=== PATIENT | female | born 1945 | race Caucasian/White ===

== ENCOUNTER 2021-02-12 10:58 | Inpatient (IN) ==
[2021-02-12 12:14] LABS: Basophils # (auto) 0.01 K/uL (0-0.2); Basophils % (auto) 0.3 %; Hemoglobin 13.2 g/dL (12.0-16.0); Immature Granulocytes # (auto) 0.02 K/uL (0.00-0.02); Immature Granulocytes % (auto) 0.6 %; Lymphocytes # (auto) 1.31 K/uL (1.2-3.4); Lymphocytes % (auto) 38.9 %; Mean Corpuscular Volume 84.9 fL (80-100); Mean Platelet Volume 11.9 fL (7.4-10.4); Monocytes # (auto) 0.41 K/uL (0.11-0.59); Monocytes % (auto) 12.2 %; Neutrophils # (auto) 1.62 K/uL (1.4-6.5); Platelet Count 136 K/uL (130-400); RDW Coefficient of Variation 13.5 % (11.5-14.5); Red Blood Count 4.71 M/uL (4.2-5.4); White Blood Count 3.37 K/uL (4.8-10.8)
[2021-02-12 12:44] LABS: Alanine Aminotransferase 38 U/L (12-78); Albumin Globulin Ratio 0.8 (0.9-2); Albumin Level 3.3 gm/dl (3.4-5.0); Alkaline Phosphatase 61 U/L (45-117); Aspartate Aminotransferase 28 U/L (15-37); BUN Creatinine Ratio 17.6 (10-20); Bilirubin,Total 0.6 mg/dl (0.2-1); Blood Urea Nitrogen 16 mg/dl (7-18); Calcium 8.7 mg/dl (8.5-10.1); Carbon Dioxide 22 mmol/L (21-32); Chloride 99 mmol/L (98-107); Creatinine Clr Calc Pharmacy 46.1 ml/min; Est GFR (African American) 68.7 ml/min; Est GFR (Non-African American) 59.3 ml/min; Glucose 302 mg/dl (70-99); Magnesium 1.3 mg/dl (1.8-2.4); Potassium 4.1 mmol/L (3.5-5.1); Sodium 130 mmol/L (136-145); Total Protein 7.3 gm/dl (6.4-8.2); Troponin I < 0.015 ng/ml (0-0.045)
[2021-02-12] MEDS ORDERED: SODIUM CHLORIDE 0.9% 1000ML 1,000 ML IV ONE (13:12)
--- NOTE | 2021-02-12 13:27 | Emergency Department Note ---
Impression & Plan COVID-19, Gastroenteritis due to COVID-19 virus, Dehydration, Hypomagnesemia, Hyperglycemia ED Provider Note NAME: AIME MCGOWAN AGE: 76 SEX: F ARRIVES VIA: Walk-In INFORMANT: Patient, ED PROVIDER(S): Mich Resendez MD CHIEF COMPLAINT: Weakness, diarrhea. PLAN: Disposition: Admit MEDICAL DECISION MAKING: The patient is a pleasant 76-year-old woman with a past medical history of NIDDM 2, CAD, hypertension, hyperlipidemia who presents to emergency department for evaluation of generalized weakness in the setting of feeling body aches and diarrhea with several episodes a day of liquid brown stool that began on Tuesday. She denies cough, congestion, chest pain, shortness of breath, nausea or vomiting. She reports she is attempting to hydrate but feels is not being effective with this. She is not vaccinated for COVID-19. Denies any known COVID-19 exposures or exposures to any individuals flulike symptoms. She denies any chest pain, abdominal pain. She reports she prefer not to be admitted if possible. On arrival patient fatigued appearing but no distress, afebrile with stable vital signs. She appears clinically dry. Her exam is otherwise unremarkable. WBC 3.3K nonspecific, H/H and platelets within normal limits. Chemistry without metabolic acidosis. However glucose is 302. Sodium 130 which corrects to 135 g iven hyperglycemia. Magnesium 1.3 with repletion initiated. Troponin negative/undetectable. LFTs are unremarkable. The patient's COVID-19 PCR was positive. Influenza PCR was negative. Upon reevaluation the patient did report some improvement after IV fluid hydration and magnesium repletion. However at this time she did agree with plan for admission given her symptoms, dehydration, hypomagnesemia in the setting of her COVID-19 infection. Case was discussed with Dr. Stone, [facility] hospitalist, who will evaluate the patient for admission. Triage Nursing notes reviewed and agree them. Prior medical records reviewed Vital Signs: reviewed and remarkable for no significant abnormalities Differential diagnosis: Infection, dehydration, metabolic abnormality, hypo/hyperglycemia, electrolyte disturbance, anemia, hypoxia, cardiac sources, intracerebral event, toxicologic, neurologic, as well as other pathologies. ER treatment provided: See below. Diagnostics interpreted by me: ECG: Normal sinus rhythm with sinus arrhythmia, 67 bpm, left bundle branch block, no ectopy, no sgarbossa criteria. Similar to September 05, 2020. Cardiac Monitoring: An order for continuous cardiac monitoring was placed and demonstrated sinus rhythm, 67 bpm, no ectopy. Laboratory studies: See below Imaging studies: See below Consultation(s): Case was discussed with Dr. Stone, [facility] hospitalist, who will evaluate the patient for admission. HPI: The patient is a pleasant 76-year-old woman with a past medical history of NIDDM 2, CAD, hypertension, hyperlipidemia who presents to emergency department for evaluation of generalized weakness in the setting of feeling body aches and diarrhea with several episodes a day of liquid brown stool that began on Tuesday. She denies cough, congestion, chest pain, shortness of breath, nausea or vomiting. She reports she is attempting to hydrate but feels is not being effective with this. She is not vaccinated for COVID-19. Denies any known COVID-19 exposures or exposures to any individuals flulike symptoms. She denies any chest pain, abdominal pain. She reports she prefer not to be admitted if possible. ROS: See above HPI for pertinent positives & negatives. A total of 10 systems reviewed and were otherwise negative. PAST MEDICAL HISTORY:See Below PAST SURGICAL HISTORY:See Below FAMILY HISTORY:See Below SOCIAL HISTORY:See Below HOME MEDICATIONS:See Below ALLERGIES:See Below VITALS:See Below PHYSICAL EXAMINATION: GENERAL: Awake, alert, fatigued-appearing, in no distress HENT: Normocephalic, atraumatic. Oropharynx with dry mucous membranes and otherwise unremarkable. EYES: Normal conjunctiva. Sclera non-icteric. NECK: Supple. No nuchal rigidity. FROM. No JVD. RESPIRATORY: Clear to auscultation. CARDIAC: Regular rate, normal rhythm. Extremities warm and well perfused. Pulses equal. ABDOMEN: Soft, non-distended. No tenderness to palpation. No rebound or guarding. No masses. RECTAL: Deferred. MUSCULOSKELETAL: Chest examination reveals no tenderness. The back is symmetrical on inspection without obvious abnormality. There is no CVA tenderness to palpation. No joint edema. LOWER EXTREMITIES: Calves are equal size bilaterally and non-tender. No edema. No discoloration. NEURO: Normal sensorium. No sensory or motor deficits noted. SKIN: No rash or jaundice noted. 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 Required: No Beliefs That Will Affect Care: None Current Living Situation: Family Feels Safe at Home: Yes Allergies Allergies Allergy/AdvReac Type Severity Reaction Status Date / Time tramadol AdvReac Intermediate Nausea Verified 02/12/21 14:43 Home Meds Home Medications Medication Instructions Recorded Confirmed alendronate 70 mg tablet 70 mg PO MO 02/12/21 02/12/21 amlodipine 5 mg tablet 5 mg PO QAM 02/12/21 02/12/21 aspirin 81 mg tablet,delayed 81 mg PO DAILY 02/12/21 02/12/21 release citalopram 20 mg tablet 20 mg PO DAILY 02/12/21 02/12/21 ezetimibe 10 mg tablet 10 mg PO DAILY 02/12/21 02/12/21 levothyroxine 25 mcg tablet 25 mcg PO DAILY 02/12/21 02/12/21 metformin 1,000 mg tablet 1,000 mg PO BID 02/12/21 02/12/21 multivitamin 1 tab PO DAILY 02/12/21 02/12/21 pantoprazole 40 mg tablet,delayed 40 mg PO DAILY 02/12/21 02/12/21 release potassium chloride 10 mEq 10 meq PO MOWEFR 02/12/21 02/12/21 tablet,extended release(part/cryst) (Klor-Con M) solifenacin 5 mg tablet 5 mg PO DAILY 02/12/21 02/12/21 triamterene 37.5 1 tab PO TID PRN 02/12/21 02/12/21 mg-hydrochlorothiazide 25 mg tablet Results & Data (ED) Vital Signs Vital Signs - 24 hr 02/12/21 11:19 02/12/21 11:23 02/12/21 13:14 Temperature 36.6 C Temperature Source Temporal Artery Scan Pulse Rate 72 63 Pulse Rate [Left Apical] Pulse Rate from SpO2 Sensor 67 Pulse Rhythm [Left Apical] Pulse Strength [Left Apical] Respiratory Rate 20 22 Respiratory Effort / Characteristics Non-Labored Non-Labored Spontaneous Respiratory Depth Normal Respiratory Pattern Regular Blood Pressure 98/61 L Blood Pressure [Right Arm] Blood Pressure Mean 73 Blood Pressure Mean [Right Arm] Blood Pressure Position [Right Arm] Pulse Oximetry 92 95 Oxygen Delivery Method Room Air Room Air Sepsis Recent Fever Within 48 Hours No Sepsis New/Unexplained Change in Mental Status N/A Sepsis Action Taken by Nursing No Action Required 02/12/21 13:30 02/12/21 14:00 02/12/21 14:30 Temperature Temperature Source Pulse Rate 65 70 68 Pulse Rate [Left Apical] 65 Pulse Rate from SpO2 Sensor 71 67 Pulse Rhythm [Left Apical] Regular Pulse Strength [Left Apical] Normal Respiratory Rate 17 25 H 23 Respiratory Effort / Characteristics Non-Labored Spontaneous Respiratory Depth Normal Respiratory Pattern Regular Blood Pressure Blood Pressure [Right Arm] 136/89 Blood Pressure Mean Blood Pressure Mean [Right Arm] 104 Blood Pressure Position [Right Arm] Lying Pulse Oximetry 93 91 91 Oxygen Delivery Method Room Air Sepsis Recent Fever Within 48 Hours Sepsis New/Unexplained Change in Mental Status Sepsis Action Taken by Nursing 02/12/21 14:45 02/12/21 15:00 02/12/21 15:30 Temperature Temperature Source Pulse Rate 68 70 Pulse Rate [Left Apical] 70 Pulse Rate from SpO2 Sensor 69 70 Pulse Rhythm [Left Apical] Regular Pulse Strength [Left Apical] Normal Respiratory Rate 18 23 23 Respiratory Effort / Characteristics Non-Labored Spontaneous Respiratory Depth Normal Respiratory Pattern Regular Blood Pressure 148/71 H Blood Pressure [Right Arm] 154/71 H Blood Pressure Mean 96 Blood Pressure Mean [Right Arm] 98 Blood Pressure Position [Right Arm] Lying Pulse Oximetry 96 92 91 Oxygen Delivery Method Room Air Sepsis Recent Fever Within 48 Hours Sepsis New/Unexplained Change in Mental Status Sepsis Action Taken by Nursing 02/12/21 16:00 02/12/21 16:30 02/12/21 17:00 Temperature Temperature Source Pulse Rate 69 68 69 Pulse Rate [Left Apical] Pulse Rate from SpO2 Sensor 68 72 70 Pulse Rhythm [Left Apical] Pulse Strength [Left Apical] Respiratory Rate 24 21 24 Respiratory Effort / Characteristics Respiratory Depth Respiratory Pattern Blood Pressure 145/80 H Blood Pressure [Right Arm] Blood Pressure Mean 101 Blood Pressure Mean [Right Arm] Blood Pressure Position [Right Arm] Pulse Oximetry 94 95 100 Oxygen Delivery Method Sepsis Recent Fever Within 48 Hours Sepsis New/Unexplained Change in Mental Status Sepsis Action Taken by Nursing 02/12/21 17:30 02/12/21 18:00 02/12/21 18:30 Temperature Temperature Source Pulse Rate 75 70 75 Pulse Rate [Left Apical] Pulse Rate from SpO2 Sensor 74 72 66 Pulse Rhythm [Left Apical] Pulse Strength [Left Apical] Respiratory Rate 20 25 H 24 Respiratory Effort / Characteristics Respiratory Depth Respiratory Pattern Blood Pressure 145/82 H Blood Pressure [Right Arm] Blood Pressure Mean 103 Blood Pressure Mean [Right Arm] Blood Pressure Position [Right Arm] Pulse Oximetry 96 96 93 Oxygen Delivery Method Sepsis Recent Fever Within 48 Hours Sepsis New/Unexplained Change in Mental Status Sepsis Action Taken by Nursing 02/12/21 19:00 Temperature Temperature Source Pulse Rate 77 Pulse Rate [Left Apical] Pulse Rate from SpO2 Sensor 68 Pulse Rhythm [Left Apical] Pulse Strength [Left Apical] Respiratory Rate 19 Respiratory Effort / Characteristics Respiratory Depth Respiratory Pattern Blood Pressure Blood Pressure [Right Arm] Blood Pressure Mean Blood Pressure Mean [Right Arm] Blood Pressure Position [Right Arm] Pulse Oximetry 93 Oxygen Delivery Method Sepsis Recent Fever Within 48 Hours Sepsis New/Unexplained Change in Mental Status Sepsis Action Taken by Nursing Laboratory Data Attestation: I reviewed the patient's lab results. Result diagrams: 02/12/21 11:54 02/12/21 11:54 Lab Results 02/12/21 02/12/21 02/12/21 Range/Units 11:54 11:54 11:54 WBC 3.37 L (4.8-10.8) K/uL RBC 4.71 (4.2-5.4) M/uL Hgb 13.2 (12.0-16.0) g/dL Hct 40.0 (37-47) % MCV 84.9 (80-100) fL MCH 28.0 (25-34) pg MCHC 33.0 (32-36) g/dL RDW Std Deviation 42.0 (36.4-46.3) fL RDW Coeff of Sheryl 13.5 (11.5-14.5) % Plt Count 136 (130-400) K/uL MPV 11.9 H (7.4-10.4) fL Immature Gran % (Auto) 0.6 % Neut % (Auto) 48.0 % Lymph % (Auto) 38.9 % Turner % (Auto) 12.2 % Eos % (Auto) 0.0 % Baso % (Auto) 0.3 % Neut # (Auto) 1.62 (1.4-6.5) K/uL Lymph # (Auto) 1.31 (1.2-3.4) K/uL Turner # (Auto) 0.41 (0.11-0.59) K/uL Eos # (Auto) 0.00 (0-0.5) K/uL Baso # (Auto) 0.01 (0-0.2) K/uL Immature Gran # (Auto) 0.02 (0.00-0.02) K/uL Sodium 130 L (136-145) mmol/L Potassium 4.1 (3.5-5.1) mmol/L Chloride 99 (98-107) mmol/L Carbon Dioxide 22 (21-32) mmol/L Anion Gap 9.0 (3-11) BUN 16 (7-18) mg/dl Creatinine 0.93 (0.6-1.2) mg/dl Est Cr Clr Drug Dosing 46.1 ml/min Est GFR ( Amer) 68.7 ml/min Est GFR (Non-Af Amer) 59.3 ml/min BUN/Creatinine Ratio 17.6 (10-20) Glucose 302 H* (70-99) mg/dl Osmolality (280-300) mOsm/kg Calcium 8.7 (8.5-10.1) mg/dl Phosphorus 3.7 (2.5-4.9) mg/dl Magnesium 1.3 L (1.8-2.4) mg/dl Total Bilirubin 0.6 (0.2-1) mg/dl AST 28 (15-37) U/L ALT 38 (12-78) U/L Alkaline Phosphatase 61 (45-117) U/L Troponin I < 0.015 (0-0.045) ng/ml Total Protein 7.3 (6.4-8.2) gm/dl Albumin 3.3 L (3.4-5.0) gm/dl Globulin 4.0 (2.5-4.0) gm/dl Albumin/Globulin Ratio 0.8 L (0.9-2) Beta-Hydroxybutyric Acd (0.2-2.81) mg/dl Specimen Hemolysis SARS-CoV-2 (PCR) (Negative) Influ A Molecular Assay (Negative) Influ B Molecular Assay (Negative) 02/12/21 02/12/21 02/12/21 Range/Units 13:35 13:35 14:47 WBC (4.8-10.8) K/uL RBC (4.2-5.4) M/uL Hgb (12.0-16.0) g/dL Hct (37-47) % MCV (80-100) fL MCH (25-34) pg MCHC (32-36) g/dL RDW Std Deviation (36.4-46.3) fL RDW Coeff of Sheryl (11.5-14.5) % Plt Count (130-400) K/uL MPV (7.4-10.4) fL Immature Gran % (Auto) % Neut % (Auto) % Lymph % (Auto) % Turner % (Auto) % Eos % (Auto) % Baso % (Auto) % Neut # (Auto) (1.4-6.5) K/uL Lymph # (Auto) (1.2-3.4) K/uL Turner # (Auto) (0.11-0.59) K/uL Eos # (Auto) (0-0.5) K/uL Baso # (Auto) (0-0.2) K/uL Immature Gran # (Auto) (0.00-0.02) K/uL Sodium (136-145) mmol/L Potassium (3.5-5.1) mmol/L Chloride (98-107) mmol/L Carbon Dioxide (21-32) mmol/L Anion Gap (3-11) BUN (7-18) mg/dl Creatinine (0.6-1.2) mg/dl Est Cr Clr Drug Dosing ml/min Est GFR ( Amer) ml/min Est GFR (Non-Af Amer) ml/min BUN/Creatinine Ratio (10-20) Glucose (70-99) mg/dl Osmolality 288 (280-300) mOsm/kg Calcium (8.5-10.1) mg/dl Phosphorus (2.5-4.9) mg/dl Magnesium (1.8-2.4) mg/dl Total Bilirubin (0.2-1) mg/dl AST (15-37) U/L ALT (12-78) U/L Alkaline Phosphatase (45-117) U/L Troponin I (0-0.045) ng/ml Total Protein (6.4-8.2) gm/dl Albumin (3.4-5.0) gm/dl Globulin (2.5-4.0) gm/dl Albumin/Globulin Ratio (0.9-2) Beta-Hydroxybutyric Acd (0.2-2.81) mg/dl Specimen Hemolysis SARS-CoV-2 (PCR) POSITIVE A* (Negative) Influ A Molecular Assay Negative (Negative) Influ B Molecular Assay Negative (Negative) 02/12/21 Range/Units 14:47 WBC (4.8-10.8) K/uL RBC (4.2-5.4) M/uL Hgb (12.0-16.0) g/dL Hct (37-47) % MCV (80-100) fL MCH (25-34) pg MCHC (32-36) g/dL RDW Std Deviation (36.4-46.3) fL RDW Coeff of Sheryl (11.5-14.5) % Plt Count (130-400) K/uL MPV (7.4-10.4) fL Immature Gran % (Auto) % Neut % (Auto) % Lymph % (Auto) % Turner % (Auto) % Eos % (Auto) % Baso % (Auto) % Neut # (Auto) (1.4-6.5) K/uL Lymph # (Auto) (1.2-3.4) K/uL Turner # (Auto) (0.11-0.59) K/uL Eos # (Auto) (0-0.5) K/uL Baso # (Auto) (0-0.2) K/uL Immature Gran # (Auto) (0.00-0.02) K/uL Sodium (136-145) mmol/L Potassium (3.5-5.1) mmol/L Chloride (98-107) mmol/L Carbon Dioxide (21-32) mmol/L Anion Gap (3-11) BUN (7-18) mg/dl Creatinine (0.6-1.2) mg/dl Est Cr Clr Drug Dosing ml/min Est GFR ( Amer) ml/min Est GFR (Non-Af Amer) ml/min BUN/Creatinine Ratio (10-20) Glucose (70-99) mg/dl Osmolality (280-300) mOsm/kg Calcium (8.5-10.1) mg/dl Phosphorus (2.5-4.9) mg/dl Magnesium (1.8-2.4) mg/dl Total Bilirubin (0.2-1) mg/dl AST (15-37) U/L ALT (12-78) U/L Alkaline Phosphatase (45-117) U/L Troponin I (0-0.045) ng/ml Total Protein (6.4-8.2) gm/dl Albumin (3.4-5.0) gm/dl Globulin (2.5-4.0) gm/dl Albumin/Globulin Ratio (0.9-2) Beta-Hydroxybutyric Acd 1.03 (0.2-2.81) mg/dl Specimen Hemolysis SARS-CoV-2 (PCR) (Negative) Influ A Molecular Assay (Negative) Influ B Molecular Assay (Negative) Administered Medications Discontinued Medications Magnesium Sulfate/Dextrose (Magnesium Sulfate / D5w) 1 gm in 100 mls @ 100 mls/hr IV Q1H ENRICO Stop: 02/12/21 15:12 Last Infusion: 02/12/21 15:56 Dose: 0 mls/hr Documented by: [id number] Admin: 02/12/21 14:46 Dose: 100 mls/hr Documented by: [id number] Infusion: 02/12/21 14:45 Dose: 0 mls/hr Documented by: [id number] Admin: 02/12/21 13:33 Dose: 100 mls/hr Documented by: [id number] Sodium Chloride (Nss 1000ml) 1,000 mls @ 999 mls/hr IV .Q1H1M ONE Stop: 02/12/21 14:12 Last Infusion: 02/12/21 14:45 Dose: 0 mls/hr Documented by: [id number] Admin: 02/12/21 13:33 Dose: 999 mls/hr Documented by: [id number] Imaging Data Radiologist's Impression: Chest X-Ray 02/12/21 11:25 XR chest 1V portable CLINICAL HISTORY: Shortness of breath. COMPARISON STUDY: No previous studies for comparison. FINDINGS: Lung volumes are normal. Minimal bibasilar opacities favor atelectasis. There is no pneumothorax or pleural effusion. Cardiac size is normal. Mediastinal contours are normal. There is no evidence for pulmonary edema. IMPRESSION: No acute cardiopulmonary findings. ACT 112: Negative or not required by law. Electronically signed by: Jesus Kramer M.D. 02/12/2021 2:00 PM Discharge Plan Visit Data Chief Complaint: Respiratory Problems Stated Complaint: TIRED/WEAKNESS/SYMPTOMS OF COLD ED Provider: Mich Resendez Discharge Problem: COVID-19, Gastroenteritis due to COVID-19 virus, Dehydration, Hypomagnesemia, Hyperglycemia Discharge Instructions Krames/Other Patient Handouts: 2019-nCoV, Coughing Techniques, Deep Coughing, ED Diabetes with High Blood Sugar, ED Gastroenteritis, Viral (Adult) Activity Restrictions/Additional Instructions: Please follow up with your primary care physician via phone within one week for re-evaluation. Your symptoms were found to be due to a COVID-19 infection with associated gastroenteritis and dehydration. This also contributed to low magnesium. Acetaminophen (650mg every 4 hours) for pain and fevers as needed. For respiratory symptoms: -Use your albuterol 2 puffs every 4 hours as needed for cough and wheezing. -Use zudf-bgo-lxrcanv Mucinex (guaifenesin) and nasal saline to help thin and clear mucus. -Use sgql-kvv-eruvqvx antihistamine such as Claritin (Loratadine) 10 mg daily for additional congestion relief. -For cough and sore throat, Salt-water gargle: Stir half a teaspoon of salt into a cup of warm water until it dissolves. Allow the solution to cool slightly before using it to gargle. Let the mixture sit at the back of the throat for a few moments before spitting it out. Gargle with salt water several times each day until the cough improves. -Deep cough/breathing exercises. For GI symptoms: Kuog-ufd-gdpklzw famotidine (Pepcid) as needed for GI upset and acid reduction. Tsfh-waj-ensdlnd Mylanta as needed for additional acid relief as needed. Zofran as needed for nausea. Drink plenty of fluids to ensure hydration with electrolyte enriched beverages such as Gatorade or Pedialyte. Remain in home isolation until: *At least 10 days since symptoms first appeared and *At least 24 hours with no fever without fever-reducing medication and *Symptoms have improved Please note any individuals with you were in contact with should remain in home quarantine for at least 14 days. Return to the emergency department for worsening symptoms as described in the accompanying instructions. Forms Stand Alone Forms: [facility], Virtual Emergency Department, Important Visit Information Prescriptions Prescriptions: No Action multivitamin Tablet 1 tab PO DAILY RF: 0 alendronate 70 mg tablet 70 mg PO MO RF: 0 amlodipine 5 mg tablet 5 mg PO QAM RF: 0 aspirin 81 mg Tablet,Delayed Release (Dr/Ec) 81 mg PO DAILY RF: 0 levothyroxine 25 mcg tablet 25 mcg PO DAILY RF: 0 citalopram 20 mg tablet 20 mg PO DAILY RF: 0 pantoprazole 40 mg tablet,delayed release (DR/EC) 40 mg PO DAILY RF: 0 metformin 1,000 mg tablet 1,000 mg PO BID RF: 0 triamterene-hydrochlorothiazid 37.5-25 mg tablet 1 tab PO TID PRN (Reason: Water Retention) RF: 0 ezetimibe 10 mg tablet 10 mg PO DAILY RF: 0 potassium chloride [Klor-Con M10] 10 mEq tablet,ER particles/crystals 10 meq PO MOWEFR RF: 0 solifenacin 5 mg tablet 5 mg PO DAILY RF: 0 Referrals Referrals: Fei Liriano MD [Primary Care Provider] -
[2021-02-12] MEDS: MAGNESIUM SULFATE / D5W 1 GM/100 ML BAG IV SCH ×2 (13:33→14:46)
--- NOTE | 2021-02-12 14:02 | XRay Report ---
XR chest 1V portable CLINICAL HISTORY: Shortness of breath. COMPARISON STUDY: No previous studies for comparison. FINDINGS: Lung volumes are normal. Minimal bibasilar opacities favor atelectasis. There is no pneumot horax or pleural effusion. Cardiac size is normal. Mediastinal contours are normal. There is no evide nce for pulmonary edema. IMPRESSION: No acute cardiopulmonary findings. ACT 112: Negative or not required by law. Electronically signed by: Jesus Kramer M.D. 02/12/2021 2:00 PM
[2021-02-12 14:08] LABS: Influenza A virus by PCR Negative (Negative); Influenza B virus by PCR Negative (Negative)
[2021-02-12] MEDS ORDERED: REMDESIVIR 200 MG in SODIUM CHLORIDE 0.9% 210 ML IV STA (23:02)
--- NOTE | 2021-02-13 01:20 | History and Physical Report ---
DATE OF ADMISSION: 02/12/2021. CHIEF COMPLAINT: Shortness of breath. HISTORY OF PRESENT ILLNESS: This is a 76-year-old female with past medical history significant for type 2 diabetes, hyperlipidemia, allergic rhinitis, hypertension, left bundle-branch block, GERD, urge incontinence, osteoporosis, history of herpes simplex infection, history of periodic limb movement disorder, major depression, who lives with her , comes because of shortness of breath. The patient is having symptoms of COVID since last Tuesday with some cough, body aches, poor appetite, fevers. Denies any headache. Denies any chest pain. Has some sore throat, no runny nose. Has no abdominal pain, but has diarrhea, had four episodes of bowel movements today. Normal bladder movements. No swelling in the legs. In the ER, she was desaturated to 88% on room air. The patient is not COVID vaccinated. ALLERGIES: TRAMADOL. PAST MEDICAL HISTORY: As mentioned above. PAST SURGICAL HISTORY: Breast lesion excision, cardiac catheterization, colonoscopy, partial hysterectomy, removal of tonsils, cataracts, cholecystectomy. MEDICATIONS: The patient is on alendronate 70 mg p.o. Tuesday, amlodipine 5 mg p.o. a.m., aspirin 81 mg p.o. daily, atorvastatin 80 mg p.o. daily, citalopram 20 mg p.o. daily, ezetimibe 10 mg p.o. daily, glimepiride 4 mg p.o. daily, hydralazine 50 mg p.o. b.i.d., levothyroxine 25 mcg p.o. daily, lisinopril 20 mg p.o. daily, metformin 1000 mg p.o. b.i.d., multivitamin 1 tablet p.o. daily, Protonix 40 mg p.o. daily, Klor-Con 10 mg p.o. Tuesday, Tuesday and Fridays, solifenacin 5 mg p.o. daily, triamterene-hydrocortisone 1 tablet p.o. t.i.d. p.r.n. FAMILY HISTORY: Significant for niece has breast cancer, brother has lung cancer, son has brain tumor. Mother has heart disorder. Daughter has hypertension. Sister has hypertension. Father has stroke. Son has stroke. SOCIAL HISTORY: Quit smoking in 2003, smoked 1 pack a day for 25 years. No alcohol, no drug use. REVIEW OF SYSTEMS: As per HPI. Rest of review of systems is negative. PHYSICAL EXAMINATION: GENERAL: The patient is moderate build, currently not in acute distress. VITAL SIGNS: Temperature 36.6, pulse 67, respiratory rate 27, blood pressure 154/70, oxygen was 88% on room air. HEENT: Pupils equal, round and reactive to light. Oral mucosa moist. NECK: No JVD, no neck masses. CARDIOVASCULAR: S1 and S2 heard. Regular rate and rhythm. No murmur, no gallop. RESPIRATORY SYSTEM: Normal AP diameter. No accessory muscle use. No wheezing, no crackles. ABDOMEN: Soft, bowel sounds present, nontender, no distention. CENTRAL NERVOUS SYSTEM: Cranial nerves II-XII grossly intact, nonfocal. EXTREMITIES: No edema, no erythema. LABORATORY DATA: WBC 3.3, hemoglobin 13.2, hematocrit 40, platelets 136. Sodium 130, potassium 4.1, chloride 99, bicarbonate 22, BUN 16, creatinine 0.9, serum glucose 302. Calcium was 8.7, magnesium 1.3, phosphorus 3.7, total bilirubin 0.6, AST 28, ALT 38, alkaline phosphatase 61. Troponin I less than 0.015, SARS-CoV-2 PCR positive. Influenza A and B negative. IMAGING DATA: Chest x-ray okay. EKG: Normal sinus rhythm with sinus arrhythmia at a rate of 67, left bundle- branch block. ASSESSMENT AND PLAN: This is a 76-year-old female who presents with COVID-19. 1. COVID-19: Was hypoxic on room air, not vaccinated, was given Decadron and remdesivir. Follow the remdesivir labs. Closely monitor in [employer] tele. 2. Hypomagnesemia, possibly from the ongoing diarrhea. We will replace. 3. Diabetes, sugars are running high. We will monitor sugars while patient is getting Decadron. Placed on insulin sliding scale Lantus. Adjust insulin regimen. 4. Hypertension. Continue home medication lisinopril, hydralazine, amlodipine. We will monitor blood pressure. 5. Gastroesophageal reflux disease: Continue Protonix. Continue solifenacin. 6. Hyperlipidemia: On statin. 7. Depression: Citalopram. 8. Deep venous thrombosis prophylaxis: Lovenox. DISPOSITION: Closely monitor in the [employer] tele. Level 1 full code. Expect to discharge home and follow with family doctor. Job ID: [id number] [facility] CENT[facility]ateryna
[2021-02-13] MEDS ORDERED: TRIAMTERENE/HCTZ 37.5/25MG TAB PO PRN (01:27)
[2021-02-13] MEDS ORDERED: SODIUM CHLORIDE 0.9% 1000ML 1,000 ML IV SCH (01:27)
[2021-02-13] MEDS ORDERED: NITROGLYCERIN SL 0.4 MG/TAB TAB SL PRN (01:27)
[2021-02-13] MEDS ORDERED: LEVALBUTEROL HCL 1.25 MG/3 ML NEB NEB PRN (01:27)
[2021-02-13] MEDS ORDERED: ACETAMINOPHEN 325 MG TAB PO PRN (01:27)
[2021-02-13] MEDS ORDERED: guaiFENesin/CODEINE 100MG/10MG 5ML UDC PO PRN (01:27)
[2021-02-13] MEDS: SODIUM CHLORIDE 0.9% 10ML FLUSH IV SCH (03:15)
[2021-02-13] MEDS: INSULIN ASPART 100 UNITS/ML 3 ML PEN SC SCH ×5 (03:38→20:27)
[2021-02-13] MEDS: LEVOTHYROXINE SODIUM 25 MCG TABLET PO SCH (06:55)
[2021-02-13] MEDS: ENOXAPARIN INJ 40 MG/0.4 ML SYR SQ SCH (07:21)
[2021-02-13] MEDS: dexAMETHasone 6 MG in SYRINGE 0 ML IV SCH (07:22)
[2021-02-13] MEDS: ASPIRIN 81 MG ECTAB PO SCH (07:22)
[2021-02-13] MEDS: FLUTICASONE FUROATE 100MCG 14 PUFFS/INHALER INH SCH (07:22)
[2021-02-13] MEDS: lisinopril 20 MG TAB PO SCH (07:22)
[2021-02-13] MEDS: ATORVASTATIN 40 MG TAB PO SCH (07:22)
[2021-02-13] MEDS: EZETIMIBE 10 MG TABLET PO SCH (07:22)
[2021-02-13] MEDS: CITALOPRAM 20 MG TAB PO SCH (07:22)
[2021-02-13] MEDS: hydrALAZINE TAB 50 MG TAB PO SCH ×2 (07:22→21:16)
[2021-02-13] MEDS: amLODIPine BESYLATE 5 MG TAB PO SCH (07:22)
[2021-02-13] MEDS: PANTOprazole 40 MG TAB PO SCH (07:23)
[2021-02-13] MEDS: MULTIVITAMIN TAB PO SCH (07:23)
[2021-02-13 07:36] LABS: Hematocrit (blood only) 38.3 % (37-47); Hemoglobin 12.6 g/dL (12.0-16.0); Mean Corpuscular Hgb Conc 32.9 g/dL (32-36); Mean Corpuscular Volume 85.1 fL (80-100); Mean Platelet Volume 12.2 fL (7.4-10.4); Platelet Count 107 K/uL (130-400); RDW Coefficient of Variation 13.8 % (11.5-14.5); White Blood Count 3.36 K/uL (4.8-10.8)
--- NOTE | 2021-02-13 07:37 | Electrocardiogram Report ---
Test Reason : Blood Pressure : / mmHG Vent. Rate : 067 BPM Atrial Rate : 067 BPM P-R Int : 174 ms QRS Dur : 142 ms QT Int : 452 ms P-R-T Axes : 000 006 110 degrees QTc Int : 477 ms Normal sinus rhythm with sinus arrhythmia Left bundle branch block Abnormal ECG When compared with ECG of 05-SEP-2020 19:59, Aberrant conduction is no longer Present QRS axis Shifted right Confirmed by Preston Swanson ([id number]) on 02/13/2021 7:36:48 AM Referred By: ED Confirmed By:Mian Swanson
[2021-02-13 08:02] LABS: Lymphocytes # (auto) 1.43 K/uL (1.2-3.4); Lymphocytes % (auto) 42.6 %; Monocytes # (auto) 0.38 K/uL (0.11-0.59); Monocytes % (auto) 11.3 %; Neutrophils # (auto) 1.55 K/uL (1.4-6.5); Neutrophils % (auto) 46.1 %
[2021-02-13 08:12] LABS: Alanine Aminotransferase 33 U/L (12-78); Albumin Level 2.8 gm/dl (3.4-5.0); Alkaline Phosphatase 55 U/L (45-117); Aspartate Aminotransferase 21 U/L (15-37); BUN Creatinine Ratio 15.7 (10-20); Bilirubin Direct < 0.1 mg/dl (0-0.2); Bilirubin,Total 0.4 mg/dl (0.2-1); Blood Urea Nitrogen 11 mg/dl (7-18); C Reactive Protein 0.83 mg/dl (0-0.29); Calcium 7.5 mg/dl (8.5-10.1); Carbon Dioxide 23 mmol/L (21-32); Chloride 105 mmol/L (98-107); Creatinine Clr Calc Pharmacy 63.1 ml/min; Est GFR (African American) 97.8 ml/min; Est GFR (Non-African American) 84.4 ml/min; Glucose 239 mg/dl (70-99); Magnesium 1.5 mg/dl (1.8-2.4); Potassium 3.6 mmol/L (3.5-5.1); Sodium 138 mmol/L (136-145); Total Protein 6.3 gm/dl (6.4-8.2)
[2021-02-13 08:30] LABS: Estimated Average Glucose 223 mg/dl; Hemoglobin A1C 9.4 % (4.5-5.6)
[2021-02-13] MEDS ORDERED: INSULIN GLARGINE SOLOSTAR 100 UNITS/ML 3 ML PEN SC SCH ×2 (09:00→21:00)
[2021-02-13] MEDS ORDERED: POTASSIUM CHLORIDE 10 MEQ TABCR PO SCH (09:00)
[2021-02-13] MEDS ORDERED: DEXTROSE 5% 500 ML IV SCH (10:15)
[2021-02-13] MEDS: MAGNESIUM SULFATE / D5W 1 GM/100 ML BAG IV SCH ×2 (10:40→13:14)
[2021-02-13 14:48] LABS: BUN Creatinine Ratio 18.8 (10-20); Calcium 7.7 mg/dl (8.5-10.1); Est GFR (Non-African American) 73.3 ml/min
[2021-02-13 15:03] LABS: Beta-Hydroxybutyrate 1.08 mg/dl (0.2-2.81); Potassium 4.2 mmol/L (3.5-5.1)
[2021-02-13] MEDS ORDERED: INSULIN HUMAN REGULAR PER UNIT 10 UNITS in SYRINGE 9.9 ML IV STA (15:45)
--- NOTE | 2021-02-13 18:03 | Hospitalist Progress Note ---
Date of Service February 13, 2021 Assessment & Plan (1) COVID-19: Plan: GI symptoms and weakness have resolved just today. She is feeling much better. Not requiring oxygen now but is 92% on room air. Would recommend 2 step test prior to discharge. Some crackles on lung auscultation indicate a possible developing pneumonia. Would watch her one more day and then consider DC to home if still not requiring oxygen. As a diabetic patient, she is at higher risk for complications of covid. She is also unvaccinated. (2) Gastroenteritis due to COVID-19 virus: Plan: Diarrhea has resolved per her report and she is eating well and ambulating to the bathroom now without issue. (3) Type 2 diabetes mellitus: Plan: Hyperglycemia partly from steroids and partly from dextrose given today. She also did not receive carbohydrate coverage for her lunch today. Gave insulin 10 units and cont with basal bolus insulin at tight restriction. (4) Hypomagnesemia: Plan: repletion given today. Repeat lab in am. (5) Dehydration: Plan: Hyponatremia likely related to recent covid symptoms and GI losses. Improved and is now within range. Noted that overnight Na was 130 and went to 138 within about 6 hours, so dextrose was given bringing Na to 134 on recheck this afternoon. Patient should eat and drink to thirst and would repeat BMP in am. (6) Hypertension: Plan: Controlled and at goal. Cont lisinopril, amlodipine and hydralazine per home regimen. Hold maxzide PRN, which is also an odd way to use that medication. Wo uld recommend readdressing that with PCP on follow-up as this should either be scheduled or not and typically only once daily. (7) Hypothyroidism: Plan: Chronic, stable. Cont Synthroid per home regimen. (8) DVT prophylaxis: Plan: Lovenox Full Code Dispo-likely to home in am. Recommend 2 step prior to discharge. Chiara Palomino DO [facility] Hospitalist Admission and Anticipated Discharge Date Admission Date: February 12, 2021 Subjective 76 yo diabetic female with ongoing diarrhea and weakness at home 2/2 covid. No evidence of pneumonia on CXR and she is not requiring oxygen supplementation. Reports occasional cough. Diarrhea has since resolved. She is now up and ambulating to the bathroom without issues and feels her weakness has improved. Doing well overall. Review of Systems Review of Systems: All systems were reviewed and negative except as indicated in subjective above. Physical Exam Physical Exam: CONSTITUTIONAL: WNWD, vitals as above, generally well- appearing, NAD EYES: normal conjunctivae, no scleral icterus ENT: external ear and nose normal, MMM NECK: trachea midline RESPIRATORY: crackles with diminished breath sounds in the RLL, no rales or wheezes, normal respiratory effort CARDIOVASCULAR: regular rate and rhythm, S1 and 2 heard without murmurs, gallops or rubs, no JVD, no peripheral edema GASTROINTESTINAL: soft, nontender, ND, no guarding MUSCULOSKELETAL: strength 5/5 throughout, head is normocephalic and atraumatic SKIN: warm and dry NEUROLOGIC: CN 2-12 grossly intact, no sensory deficit, normal cognition, normal speech, no tremor. No gross focal deficits. PSYCHIATRIC: alert cooperative and oriented to person, place and time. Euthymic mood, makes good eye contact, language grossly intact, recent and remote memory grossly intact. Results & Data Results & Data ([facility]) Vital Signs (Past 12 Hours) Vital Signs Temp Pulse Pulse Resp BP BP Pulse Ox 02/13/21 12:57 75 20 142/65 H 92 02/13/21 10:51 37.3 C 71 22 129/58 L 96 02/13/21 10:41 37.3 C 70 22 129/58 L 95 02/13/21 07:29 37.3 C 64 19 158/76 H 92 Laboratory Results Short CBC 02/13/21 Range/Units 06:49 WBC 3.36 L (4.8-10.8) K/uL Hgb 12.6 (12.0-16.0) g/dL Hct 38.3 (37-47) % Plt Count 107 L (130-400) K/uL BMP 02/13/21 02/13/21 06:49 14:11 Sodium 138 D 134 L Potassium 3.6 4.2 D Chloride 105 103 Carbon Dioxide 23 21 BUN 11 15 Creatinine 0.68 0.78 Glucose 239 H 407 H* Calcium 7.5 L 7.7 L Liver Function 02/13/21 Range/Units 06:49 Total Bilirubin 0.4 (0.2-1) mg/dl Direct Bilirubin < 0.1 (0-0.2) mg/dl AST 21 (15-37) U/L ALT 33 (12-78) U/L Alkaline Phosphatase 55 (45-117) U/L Albumin 2.8 L (3.4-5.0) gm/dl Medications Administered Current Inpatient Medications Acetaminophen (Acetaminophen 325 Mg Tab) 650 mg PO Q4H PRN PRN Reason: Pain or Fever Stop: 03/15/21 01:26 Alendronate Sodium (Alendronate Sodium 70 Mg Tab) 70 mg PO Mo@0630 [place] Stop: 03/18/21 06:29 Amlodipine Besylate (Amlodipine Besylate 5 Mg Tab) 5 mg PO QAM [place] Stop: 03/15/21 08:59 Last Admin: 02/13/21 07:22 Dose: 5 mg Documented by: Aspirin (Aspirin 81 Mg Ectab) 81 mg PO DAILY [place] Stop: 03/15/21 08:59 Last Admin: 02/13/21 07:22 Dose: 81 mg Documented by: Atorvastatin Calcium (Atorvastatin 40 Mg Tab) 80 mg PO DAILY [place] Stop: 03/15/21 08:59 Last Admin: 02/13/21 07:22 Dose: 80 mg Documented by: Citalopram Hydrobromide (Citalopram 20 Mg Tab) 20 mg PO DAILY [place] Stop: 03/15/21 08:59 Last Admin: 02/13/21 07:22 Dose: 20 mg Documented by: Ezetimibe (Ezetimibe 10 Mg Tablet) 10 mg PO DAILY [place] Stop: 03/15/21 08:59 Last Admin: 02/13/21 07:22 Dose: 10 mg Documented by: Enoxaparin Sodium (Enoxaparin Inj 40 Mg/0.4 Ml Syr) 40 mg SQ Q24H [place] Stop: 03/15/21 08:59 Last Admin: 02/13/21 07:21 Dose: 40 mg Documented by: Fluticasone Furoate (Fluticasone Furoate 100mcg 14 Puffs/Inhaler) 1 puffs INH DAILY [place] Stop: 03/15/21 08:59 Last Admin: 02/13/21 07:22 Dose: 1 puffs Documented by: Guaifenesin/Codeine Phosphate (Guaifenesin/Codeine 100mg/10mg 5ml Udc) 5 ml PO Q6H PRN PRN Reason: Cough Stop: 03/15/21 01:26 Hydralazine HCl (Hydralazine Tab 50 Mg Tab) 50 mg PO BID [place] Stop: 03/15/21 08:59 Last Admin: 02/13/21 07:22 Dose: 50 mg Documented by: Remdesivir 100 mg/ Sodium (Chloride) 250 mls @ 250 mls/hr IV Q24H [facility]; Protocol Stop: 02/16/21 20:59 Dexamethasone 6 mg/ Syringe 1.5 mls @ 1 mls/min IV DAILY [place] Stop: 02/23/21 08:59 Last Admin: 02/13/21 07:22 Dose: 1 mls/min Documented by: Insulin Aspart (Insulin Aspart 100 Units/Ml 3 Ml Pen) 0 units SC ACHS [place] Stop: 03/15/21 02:59 Last Admin: 02/13/21 12:14 Dose: 8 units Documented by: Insulin Glargine (Insulin Glargine Solostar 100 Units/Ml 3 Ml Pen) 15 units SC BID [facility] Stop: 03/15/21 20:59 Levalbuterol HCl (Levalbuterol Hcl 1.25 Mg/3 Ml Neb) 1.25 mg NEB Q4H PRN PRN Reason: Shortness Of Breath Or Wheezing Stop: 03/15/21 01:26 Levothyroxine Sodium (Levothyroxine Sodium 25 Mcg Tablet) 25 mcg PO DAILYBB [facility] Stop: 03/15/21 06:29 Last Admin: 02/13/21 06:55 Dose: 25 mcg Documented by: Lisinopril (Lisinopril 20 Mg Tab) 20 mg PO DAILY [place] Stop: 03/15/21 08:59 Last Admin: 02/13/21 07:22 Dose: 20 mg Documented by: Miscellaneous (Solifenacin: Order Awaiting Action) 1 ea N/A QS [facility] Stop: 03/15/21 07:59 Last Admin: 02/13/21 07:22 Dose: Not Given Documented by: Multivitamins (Multivitamin Tab) 1 tab PO DAILY [facility] Stop: 03/15/21 08:59 Last Admin: 02/13/21 07:23 Dose: 1 tab Documented by: Nitroglycerin (Nitroglycerin Sl 0.4 Mg/Tab Tab) 0.4 mg SL UD PRN PRN Reason: Chest Pain Stop: 03/15/21 01:26 Pantoprazole Sodium (Pantoprazole 40 Mg Tab) 40 mg PO DAILY [facility] Stop: 03/15/21 08:59 Last Admin: 02/13/21 07:23 Dose: 40 mg Documented by: Potassium Chloride (Potassium Chloride 10 Meq Tabcr) 10 meq PO MoWeFr@0900 [place] Stop: 03/15/21 08:59 Last Admin: 02/13/21 07:23 Dose: 10 meq Documented by: Sodium Chloride (Sodium Chloride 0.9% 10ml Flush) 30 ml IV Q24H [facility] Stop: 02/17/21 02:31 Last Admin: 02/13/21 03:15 Dose: 30 ml Documented by: Triamterene/Hydrochlorothiazide (Triamterene/Hctz 37.5/25mg Tab) 1 tab PO TID PRN PRN Reason: Water Retention Stop: 03/15/21 01:26
[2021-02-13] MEDS ORDERED: REMDESIVIR 100 MG in SODIUM CHLORIDE 0.9% 230 ML IV SCH (20:00)
[2021-02-13] MEDS: INSULIN GLARGINE SOLOSTAR 100 UNITS/ML 3 ML PEN SC SCH (21:23)
[2021-02-14] MEDS ORDERED: PNEUMOCOCCAL POLYSACCHARIDES 25 MCG/0.5 ML VIAL/SYR IM ONE (00:13)
[2021-02-14] MEDS ORDERED: INSULIN ASPART 100 UNITS/ML 3 ML PEN SC ONE (00:35)
[2021-02-14] MEDS ORDERED: INSULIN HUMAN REGULAR PER UNIT 5 UNITS in SYRINGE 4.95 ML IV STA (00:39)
[2021-02-14] MEDS: SODIUM CHLORIDE 0.9% 10ML FLUSH IV SCH (03:31)
[2021-02-14] MEDS: LEVOTHYROXINE SODIUM 25 MCG TABLET PO SCH (05:43)
[2021-02-14 07:10] VITALS: TEMP 98.2
[2021-02-14] MEDS: ATORVASTATIN 40 MG TAB PO SCH (07:34)
[2021-02-14] MEDS: PANTOprazole 40 MG TAB PO SCH (07:34)
[2021-02-14] MEDS: ASPIRIN 81 MG ECTAB PO SCH (07:34)
[2021-02-14] MEDS: CITALOPRAM 20 MG TAB PO SCH (07:34)
[2021-02-14] MEDS: lisinopril 20 MG TAB PO SCH (07:34)
[2021-02-14] MEDS: EZETIMIBE 10 MG TABLET PO SCH (07:35)
[2021-02-14] MEDS: MULTIVITAMIN TAB PO SCH (07:35)
[2021-02-14] MEDS: amLODIPine BESYLATE 5 MG TAB PO SCH (07:35)
[2021-02-14] MEDS: ENOXAPARIN INJ 40 MG/0.4 ML SYR SQ SCH (07:36)
[2021-02-14] MEDS: hydrALAZINE TAB 50 MG TAB PO SCH (07:37)
[2021-02-14] MEDS: FLUTICASONE FUROATE 100MCG 14 PUFFS/INHALER INH SCH (07:37)
[2021-02-14] MEDS: dexAMETHasone 6 MG in SYRINGE 0 ML IV SCH (07:38)
[2021-02-14] MEDS: INSULIN ASPART 100 UNITS/ML 3 ML PEN SC SCH ×2 (08:00→13:05)
[2021-02-14 08:22] LABS: Hematocrit (blood only) 41.1 % (37-47); Hemoglobin 13.6 g/dL (12.0-16.0); Mean Corpuscular Hemoglobin 27.9 pg (25-34); Mean Corpuscular Hgb Conc 33.1 g/dL (32-36); Mean Corpuscular Volume 84.2 fL (80-100); Mean Platelet Volume 11.5 fL (7.4-10.4); Platelet Count 148 K/uL (130-400); RDW Coefficient of Variation 13.6 % (11.5-14.5); RDW Standard Deviation 41.8 fL (36.4-46.3); Red Blood Count 4.88 M/uL (4.2-5.4); White Blood Count 3.72 K/uL (4.8-10.8)
[2021-02-14] MEDS: INSULIN GLARGINE SOLOSTAR 100 UNITS/ML 3 ML PEN SC SCH (08:27)
[2021-02-14 09:07] LABS: BUN Creatinine Ratio 22.3 (10-20); C Reactive Protein 1.17 mg/dl (0-0.29); Calcium 7.9 mg/dl (8.5-10.1); Creatinine Clr Calc Pharmacy 60.9 ml/min; Est GFR (African American) 96.9 ml/min; Est GFR (Non-African American) 83.6 ml/min; Magnesium 1.8 mg/dl (1.8-2.4); Potassium 3.4 mmol/L (3.5-5.1)
[2021-02-14 11:11] VITALS: BP 138/61
[2021-02-14] MEDS ORDERED: POTASSIUM CHLORIDE CRTAB 20 MEQ TABCR PO STA (13:14)
--- NOTE | 2021-02-14 14:03 | Discharge Summary ---
Date of Service February 14, 2021 Admission HPI Per Admitting Provider This is a 76-year-old female with past medical history significant for type 2 diabetes, hyperlipidemia, allergic rhinitis, hypertension, left bundle-branch block, GERD, urge incontinence, osteoporosis, history of herpes simplex infection, history of periodic limb movement disorder, major depression, who lives with her , comes because of shortness of breath. The patient is having symptoms of COVID since last Tuesday with some cough, body aches, poor appetite, fevers. Denies any headache. Denies any chest pain. Has some sore throat, no runny nose. Has no abdominal pain, but has diarrhea, had four episo shannon of bowel movements today. Normal bladder movements. No swelling in the legs. In the ER, she was desaturated to 88% on room air. The patient is not COVID vaccinated. Admission Exam Per Admitting Provider GENERAL: The patient is moderate build, currently not in acute distress. VITAL SIGNS: Temperature 36.6, pulse 67, respiratory rate 27, blood pressure 154/70, oxygen was 88% on room air. HEENT: Pupils equal, round and reactive to light. Oral mucosa moist. NECK: No JVD, no neck masses. CARDIOVASCULAR: S1 and S2 heard. Regular rate and rhythm. No murmur, no gallop. RESPIRATORY SYSTEM: Normal AP diameter. No accessory muscle use. No wheezing, no crackles. ABDOMEN: Soft, bowel sounds present, nontender, no distention. CENTRAL NERVOUS SYSTEM: Cranial nerves II-XII grossly intact, nonfocal. EXTREMITIES: No edema, no erythema. Principal Diagnosis COVID 19 infection Gastroenteritis due to COVID 19 Hypomagnesemia Discharge Exam Constitutional + well hydrated; no acute distress Eyes PERRL, conjunctivae normal, anicteric sclerae ENMT external ear and nose normal, oropharynx normal Respiratory normal respiratory effort, lungs clear to auscultation Cardiovascular Rate/Rhythm: regular rate and regular rhythm S1 S2 Gastrointestinal (Abdomen) normal bowel sounds, soft, nontender, no hepatosplenomegaly Musculoskeletal no cyanosis or clubbing, extremities motor strength 5/5 Neurologic PERRL, EOMI, accommodation nl, no face palsy, no dysarthria Psychiatric A+Ox3, euthymic affect Discharge Data Allergies Allergy/AdvReac Type Severity Reaction Status Date / Time tramadol AdvReac Intermediate Nausea Verified 02/12/21 14:43 Consultations 02/12/21 16:46 ED Decision to Admit Stat Diabetes Follow up Diabetes Follow-up Needed for HgbA1c >9% Hospital Course (1) COVID-19: (2) Gastroenteritis due to COVID-19 virus: Patient was started on dexamethasone on admission Had one recorded hypoxic event on admission. Chest XR reported no acute findings Was initially on oxygen but weaned off promptly Diarrhea resolved 2 Step today did not show any oxygen requirement at rest or with activity (3) Type 2 diabetes mellitus: Hyperglycemia due to steroids inpatient Provided diabetes education Advised to monitor glucose at home Continue home antidiabetics (4) Hypomagnesemia: (5) Dehydration: Due to diarrhea Repleted (6) Hypertension: Continue home medications (7) Hypothyroidism: Continue levothyroxine Total Time Total Time Spent Total Time Spent (In Minutes): 40 Total Time Includes: Examination of the Patient, Discharge Planning and Medication Reconciliation Discharge Plan Discharge Items Patient Disposition: Home - Self-Care Reason For Visit: Shortness of breath Discharge Diagnosis: COVID 19 infection Gastroenteritis due to COVID 19 Hypomagnesemia Activity: Resume your previous activity Non-emergency contact: Primary Care Provider Call non-emergency contact if: you have any medication questions and your symptoms worsen Follow-up/Referrals: Fei Liriano MD [Primary Care Provider] - Diet: Carb Consistent or DM2 and Heart Healthy [place] Attending Provider Instructions: Mrs Magallon You came to the hospital due to diarrhea and weakness. You were evaluated and found to have COVID-19 infection. You required oxygen briefly. You were treated and your symptoms improved. You are being discharged home. Please monitor your blood glucose at home as we discussed. Please ensure you home isolate for total of 10 days from onset of symptoms. Please ensure follow up with your Primary Doctor. It was a pleasure taking care of you. [employer] Specialist Provider Instructions: Home Isolation COVID-19 Instructions The following information about Home Isolation is from the CDC Website: https://www.cdc.gov/coronavirus/2019-ncov/hcp/mqplcsuj-rhhhrxp-ibeqob.html Stay home except to get medical care People who are mildly ill with COVID-19 are able to isolate at home during their illness. You should restrict activities outside your home, except for getting medical care. Do not go to work, school, or public areas. Avoid using public transportation, ride-sharing, or taxis. Separate yourself from other people and animals in your home People: As much as possible, you should stay in a specific room and away from other people in your home. Also, you should use a separate bathroom, if available. Animals: You should restrict contact with pets and other animals while you are sick with COVID-19, just like you would around other people. Although there have not been reports of pets or other animals becoming sick with COVID-19, it is still recommended that people sick with COVID-19 limit contact with animals until more information is known about the virus. When possible, have another member of your household care for your animals while you are sick. If you are sick with COVID-19, avoid contact with your pet, including petting, snuggling, being kissed or licked, and sharing food. If you must care for your pet or be around animals while you are sick, wash your hands before and after you interact with pets and wear a face mask. Call ahead before visiting your doctor If you have a medical appointment, call the healthcare provider and tell them that you have or may have COVID-19. This will help the healthcare providers office take steps to keep other people from getting infected or exposed. Wear a face mask You should wear a face mask when you are around other people (e.g., sharing a room or vehicle) or pets and before you enter a healthcare providers office. If you are not able to wear a face mask (for example, because it causes trouble breathing), then people who live with you should not stay in the same room with you, or they should wear a face mask if they enter your room. Cover your coughs and sneezes Cover your mouth and nose with a tissue when you cough or sneeze. Throw used tissues in a lined trash can. Immediately wash your hands with soap and water for at least 20 seconds or, if soap and water are not available, clean your hands with an alcohol-based hand pool coordinator that contains at least 60% alcohol. Clean your hands often Wash your hands often with soap and water for at least 20 seconds, especially after blowing your nose, coughing, or sneezing; going to the bathroom; and before eating or preparing food. If soap and water are not readily available, use an alcohol-based hand pool coordinator with at least 60% alcohol, covering all surfaces of your hands and rubbing them together until they feel dry. Soap and water are the best option if hands are visibly dirty. Avoid touching your eyes, nose, and mouth with unwashed hands. Avoid sharing personal household items You should not share dishes, drinking glasses, cups, eating utensils, towels, or bedding with other people or pets in your home. After using these items, they should be washed thoroughly with soap and water. Clean all high-touch surfaces everyday High touch surfaces include counters, tabletops, doorknobs, bathroom fixtures, toilets, phones, keyboards, tablets, and bedside tables. Also, clean any surfaces that may have blood, stool, or body fluids on them. Use a household cleaning spray or wipe, according to the label instructions. Labels contain instructions for safe and effective use of the cleaning product including precautions you should take when applying the product, such as wearing gloves and making sure you have good ventilation during use of the product. Monitor your symptoms Seek prompt medical attention if your illness is worsening (e.g., difficulty breathing).Beforeseeking care, call your healthcare provider and tell them that you have, or are being evaluated for, COVID-19. Put on a face mask before you enter the facility. These steps will help the healthcare providers office to keep other people in the office or waiting room from getting infected or exposed. Ask your healthcare provider to call the local or our community hospital health department. Persons who are placed under active monitoring or facilitated self- monitoring should follow instructions provided by their local health department or occupational health professionals, as appropriate. When working with your local health department check their available hours. If you have a medical emergency and need to call 911, notify the dispatch personnel that you have, or are being evaluated for COVID-19. If possible, put on a face mask before emergency medical services arrive. Discontinuing home isolation Patients with confirmed COVID-19 should remain under home isolation precautions until the risk of secondary transmission to others is thought to be low. The decision to discontinue home isolation precautions should be made on a [id number] basis, in consultation with healthcare providers and our community hospital and [facility] health departments. Pending Studies at Discharge: No Stand-Alone Forms: [facility], Smoking Cessation Medications and DC Order Prescriptions: Continued multivitamin Tablet 1 tab PO DAILY RF: 0 alendronate 70 mg tablet 70 mg PO MO RF: 0 amlodipine 5 mg tablet 5 mg PO QAM RF: 0 aspirin 81 mg Tablet,Delayed Release (Dr/Ec) 81 mg PO DAILY RF: 0 levothyroxine 25 mcg tablet 25 mcg PO DAILY RF: 0 citalopram 20 mg tablet 20 mg PO DAILY RF: 0 pantoprazole 40 mg tablet,delayed release (DR/EC) 40 mg PO DAILY RF: 0 metformin 1,000 mg tablet 1,000 mg PO BID RF: 0 triamterene-hydrochlorothiazid 37.5-25 mg tablet 1 tab PO TID PRN (Reason: Water Retention) RF: 0 ezetimibe 10 mg tablet 10 mg PO DAILY RF: 0 potassium chloride [Klor-Con M10] 10 mEq tablet,ER particles/crystals 10 meq PO MOWEFR RF: 0 solifenacin 5 mg tablet 5 mg PO DAILY RF: 0 glimepiride 4 mg Tablet 4 mg PO DAILY RF: 0 atorvastatin 80 mg 80 mg PO DAILY RF: 0 hydralazine 50 mg 50 mg PO BID RF: 0 lisinopril 20 mg 20 mg PO DAILY RF: 0 Discharge Orders: Discharge Order (Routine); Ordered 02/14/21 Ordered By: Nannette Mcghee Admission Data Admit Date/Time: 02/12/21 23:02 Attending Provider: Nannette Mcghee I. Admit Provider: Theodore Stone Primary Care Provider: Fei Liriano Other Providers: Theodore Stone ; Chiara Palomino ; Nannette Mcghee I. Other Interventions: Discharge Summary Assessment (RN) Last Done: 02/14/21 14:54
[2021-02-14 14:57] VITALS: PULSE 69; O2SAT 94
[2021-02-16] MEDS ORDERED: ALENDRONATE SODIUM 70 MG TAB PO SCH (06:30)
== END 2021-02-14 16:09 | disposition home or self-care (01) | DRG 179 ==
LOC: ED 10:58 → EDINP 23:02 → SUATTDRO 23:02 → 2S 02-13 23:41